=== PATIENT | male | born 2000 | race Caucasian/White ===

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

== ENCOUNTER 2020-01-27 08:52 | Emergency (ER) | payer OTHER ==
[~2020-01-27] VITALS: Ht 185.4 cm; Wt 137.4 kg
[~2020-01-27 08:52] MED LIST changes: +PREDNISONE20 MG PO; +VENTOLIN HFA18 GM INH; +ZITHROMAX250 MG PO
--- OUTSIDE RECORDS SUMMARY | 2020-01-27 08:54 | XMS ---
PreManage Notification: ENRIQUE ALARCON Security Electrical Tester Battery Events No recent Security Events currently on file CRITERIA MET - History of Sepsis CARE PROVIDERS DAREN SERVIN Physician Link Assembler 04/20/2019-Current PHONE: [phone] PALOMA HAWKINS Corporate Real Estate Specialist: Clinical Current PHONE: [phone] Kathia has no Care Guidelines for this patient. [place]iss[place] VISIT COUNT (12 MO.) [address] [place] TOTAL 8 NOTE: Visits indicate total known visits. ED/UCC VISIT TRACKING (12 MO.) 01/27/2020 08:53 [facility] [place] TYPE: Emergency COMPLAINT: - CHEST DISCOMFORT, SOB, COUGH 12/18/2019 10:10 [facility] [place] TYPE: Emergency COMPLAINT: - SOB, COUGH DIAGNOSES: - Cough - Unspecified asthma with (acute) exacerbation 11/29/2019 14:12 [facility] [place] TYPE: Emergency COMPLAINT: - LEFT SIDE CHEST PAIN DIAGNOSES: - Contact with and (suspected) exposure to other viral communicable diseases - Other chest pain - Acute upper respiratory infection, unspecified 07/17/2019 15:06 [facility] TYPE: Emergency COMPLAINT: - SORE THROAT DIAGNOSES: - Unspecified asthma, uncomplicated - Acute pharyngitis, unspecified - Acute pharyngitis, unspecified - Attention-deficit hyperactivity disorder, unspecified type - Major depressive disorder, single episode, unspecified 05/22/2019 13:41 [facility] TYPE: Emergency COMPLAINT: - FLANK/ABD PAIN, POST OP 1 MONTH DIAGNOSES: - Other longterm (current) drug therapy - Attention-deficit hyperactivity disorder, unspecified type - Major depressive disorder, single episode, unspecified - Pleural effusion, not elsewhere classified - Other chest pain - Unspecified asthma, uncomplicated 04/22/2019 12:52 [facility] TYPE: Emergency DIAGNOSES: - Shortness of Breath - Loculated pleural effusion 04/19/2019 10:59 [facility] [place] TYPE: Emergency COMPLAINT: - ACHES,BREATHING PROBLEMS 04/14/2019 18:15 [facility] [place] TYPE: Emergency COMPLAINT: - L SHOULDER/CHEST PAIN DIAGNOSES: - Chest pain, unspecified - Other chest pain INPATIENT VISIT TRACKING (12 MO.) 04/22/2019 12:52 [facility] DIAGNOSES: - Lobar pneumonia, [...] to excess calories - Body mass index [BMI]40.0-44.9, adult - Mild intermittent asthma, uncomplicated - Other specified anxiety disorders - Body mass index [BMI]40.0-44.9, adult - Mild intermittent asthma, uncomplicated - Other specified anxiety disorders - Pleural effusion in other conditions classified elsewhere - Pneumonia, unspecified organism - Morbid (severe) obesity due to excess calories - Other pulmonary collapse - Other specified pleural conditions - Other specified pleural conditions - Sepsis, unspecified organism - Pleural effusion in other conditions classified elsewhere [email or web address]
--- NOTE | 2020-01-27 12:39 | EKG ---
[facility] [address] [facility] [place] [address] Signed Normal sinus rhythm Normal ECG When compared with ECG of 19-APR-2019 11:19, Incomplete right bundle branch block is no longer present Confirmed by EZEQUIEL ROMANO MD ([id number]) on 01/27/2020 12:39:09 PM Electronically Signed By: EZEQUIEL ROMANO MD 01/27/20 1239 PATIENT NAME: DORIANENRIQUE Electrocardiogram DATE OF : [birth year] PHYSICIAN: EZEQUIEL ROMANO MD REPORT #: [id number] REPORT IS CONFIDENTIAL AND NOT TO BE RELEASED WITHOUT AUTHORIZATION
== END 2020-01-27 11:45 | disposition home or self-care (01) ==
LOC: ED 08:52
DX: J06.9 Acute upper respiratory infection, unspecified (principal); Z20.828 Contact with and (suspected) exposure to other viral communicable diseases; F90.9 Attention-deficit hyperactivity disorder, unspecified type; F32.9 Major depressive disorder, single episode, unspecified; J45.909 Unspecified asthma, uncomplicated
CPT/HCPCS: 71045; 93005; 93010; 99285-25; A9270; C9803; U0003

== ENCOUNTER 2022-10-04 13:54 | Emergency (ER) | payer SELFPAY ==
[~2022-10-04] VITALS: Ht 185.4 cm; Wt 166.9 kg
[2022-10-04] MEDS ORDERED: IBU600 MG PO (15:11)
[2022-10-04] MEDS ORDERED: CEPHALEXIN500 M1 PO (15:11)
[2022-10-04] MEDS ORDERED: BACTRIM DS TAB1 EACH PO (15:11)
[2022-10-04 15:18] VITALS: BP 145/97
== END 2022-10-04 15:19 | disposition home or self-care (01) ==
LOC: ED 13:54
DX: L03.032 Cellulitis of left toe (principal); J45.909 Unspecified asthma, uncomplicated
CPT/HCPCS: 99283

== ENCOUNTER 2022-11-29 12:17 | Emergency (ER) | payer OTHER ==
[~2022-11-29] VITALS: Ht 185.4 cm; Wt 147.5 kg
--- OUTSIDE RECORDS SUMMARY | ~2022-11-29 | XMS | Continuity of Care Document ---
Demographics + + + | Address | [address] | | | [place] [address] | + + + | Preferred Language | Unknown | + + + | Marital Status | Never | + + + | Mu-Ism Affiliation | Unknown | + + + | Race | White | + + + | Ethnic Group | Not or | + + + Author + + + | Author | [facility] | + + + | Organization | [facility] | + + + | Address | [address] | | | [place] [address] | + + + | Phone | | + + + Care Team Providers + + + + | Care Development Spec Name | Role | Phone | + + + + Unavailable | Unavailable | + + + + Allergies No information. Encounters No information. Functional Status No information. Immunizations No information. Medications No information. Problems + + + + | date | description | facility | + + + + | 2022-10-04 13:55 | UNSPECIFIED ASTHMA, | [facility] | | | UNCOMPLICATED | | + + + + | 2022-10-04 13:55 | CELLULITIS OF LEFT TOE | [facility] | + + + + | 2022-10-04 13:55 | PAIN IN LEFT TOE(S) | [facility] | + + + + Procedures No information. Results/Labs No information. Social History +--------+ + + | date | description | facility | +--------+ + + Vital Signs No information."
--- OUTSIDE RECORDS SUMMARY | ~2022-11-29 | XMS | Continuity of Care Document ---
Demographics + + + | Address | [address] | | | [place] [address] | + + + | Preferred Language | Unknown | + + + | Marital Status | Never | + + + | Presybeterian Affiliation | Unknown | + + + | Race | White | + + + | Ethnic Group | Not or | + + + Author + + + | Author | [facility] | + + + | Organization | [facility] | + + + | Address | [address] | | | [place] [address] | + + + | Phone | | + + + Care Team Providers + + + + | Care Licensed [employer] Appraiser Name | Role | Phone | + [...]
[~2022-11-29 12:17] MED LIST changes: +BACTRIM DS TAB1 EACH PO; +CEPHALEXIN500 M1 PO; +IBU600 MG PO
[2022-11-29] MEDS ORDERED: HYDROCODON-ACE1 EA11 PO (18:25)
[2022-11-29 18:56] VITALS: BP 128/70
== END 2022-11-29 18:58 | disposition home or self-care (01) ==
LOC: ED 12:17
DX: S92.412A Displaced fracture of proximal phalanx of left great toe, initial encounter for closed fracture (principal); W20.8XXA Other cause of strike by thrown, projected or falling object, initial encounter
CPT/HCPCS: 73630; 99283-25; A9270

== ENCOUNTER 2023-07-10 15:13 | Emergency (ER) | payer SELFPAY ==
[~2023-07-10] VITALS: Ht 185.4 cm; Wt 155.9 kg
[~2023-07-10 15:13] MED LIST changes: +HYDROCODON-ACE1 EA11 PO
[2023-07-10] MEDS ORDERED: ESTRADIOL1 MG PO (15:33)
[2023-07-10] MEDS ORDERED: CEPHALEXIN500 MG PO (15:33)
[2023-07-10] MEDS ORDERED: KETOROLAC TROMETHAMINE 15 MG/ML VIAL IV ONE (15:45)
[2023-07-10] MEDS ORDERED: ondansetron HCL 4 MG/2 ML VIAL IV ONE (15:45)
[2023-07-10 16:13] LABS: BASOPHILS 0.5 % (0-2); EOSINOPHILS 2.1 % (0-6); HEMATOCRIT 46.1 % (35.0-50.0); HEMOGLOBIN 16.2 g/dL (12.0-18.0); LYMPHOCYTES 27.9 % (24-44); MCH 30.3 (27-36); MCHC 35.1 g/dl (30-36); MCV 86.4 fl (81-99); MONOCYTES 3.8 % (0-12); NEUTROPHILS 65.7 % (39-80); PLATELET COUNT 260 K/uL (140-440); RBC 5.33 M/ul (4.3-5.7); RDW 12.8 (10.5-15.0)
[2023-07-10 16:27] LABS: ALBUMIN 4.2 g/dL (3.4-5.0); ALBUMIN/GLOBULIN RATIO 1.27 (1.1-2.4); ANION GAP 12.4 (7-21); BILIRUBIN, TOTAL 0.8 ng/dL (0.2-1.0); BUN/CREATININE RATIO 11.76 (6.0-28.6); CALCIUM 8.9 mg/dL (8.5-10.1); CREATININE, SERUM 0.85 mg/dL (0.70-1.30); POTASSIUM 3.4 mmol/L (3.5-5.1); PROTEIN, TOTAL 7.5 g/dL (6.4-8.2)
[2023-07-10 16:48] LABS: INFLUENZA B NAA NEGATIVE (NEGATIVE); RESPIRATORY SYNCYTIAL VIR NAA NEGATIVE (NEGATIVE)
[2023-07-10 17:18] VITALS: BP 145/70
== END 2023-07-10 17:20 | disposition home or self-care (01) ==
LOC: ED 15:13
PROVIDERS: Emergency Medicine
DX: U07.1 COVID-19 (principal); J90 Pleural effusion, not elsewhere classified; J45.909 Unspecified asthma, uncomplicated; Z79.890 Hormone replacement therapy
CPT/HCPCS: 36415; 71045; 80053; 83690; 85025; 87502; 96374; 96375; 99284-25; J1885; J2405; U0002

== ENCOUNTER 2023-07-24 09:40 | Emergency (ER) | payer SELFPAY ==
[~2023-07-24] VITALS: Ht 185.4 cm; Wt 136.5 kg
[~2023-07-24 09:40] MED LIST changes: +CEPHALEXIN500 MG PO; +ESTRADIOL1 MG PO
[2023-07-24 10:12] VITALS: BP 143/93
== END 2023-07-24 10:09 | disposition home or self-care (01) ==
LOC: ED 09:40
DX: H10.13 Acute atopic conjunctivitis, bilateral (principal); J45.909 Unspecified asthma, uncomplicated; Z79.890 Hormone replacement therapy
CPT/HCPCS: 99282

== ENCOUNTER 2024-02-02 09:38 | Emergency (ER) | payer SELFPAY ==
[~2024-02-02] VITALS: Ht 185.4 cm; Wt 165.8 kg
[~2024-02-02 09:38] MED LIST changes: +COLCHICINE0.6 M1 PO; +ESTRADIOL2 MG PO; +INDOMETHACIN50 MG PO; +SPIRONOLACTONE50 MG PO
[2024-02-02] MEDS ORDERED: ALBUTEROL/IPRATROPIUM 3 ML NEB ONE (09:48)
[2024-02-02] MEDS ORDERED: ALBUTEROL/IPRATROPIUM 3 ML NEB INH PRN (10:00)
[2024-02-02 10:13] LABS: BASOPHILS 0.6 % (0-2); EOSINOPHILS 2.6 % (0-6); HEMATOCRIT 43.5 % (35.0-50.0); HEMOGLOBIN 15.2 g/dL (12.0-18.0); LYMPHOCYTES 36.2 % (24-44); MCH 31.1 (27-36); MCHC 34.9 g/dl (30-36); MCV 89.2 fl (81-99); NEUTROPHILS 54.6 % (39-80); PLATELET COUNT 289 K/uL (140-440); RBC 4.88 M/ul (4.3-5.7); RDW 12.3 (10.5-15.0)
[2024-02-02] MEDS ORDERED: KETOROLAC TROMETHAMINE 30 MG/ML VIAL IV ONE (10:30)
[2024-02-02 10:36] LABS: ALBUMIN 4.1 g/dL (3.4-5.0); ALBUMIN/GLOBULIN RATIO 1.21 (1.1-2.4); ALKALINE PHOSPHATASE 64 U/L (46-116); ALT (SGPT) 45 U/L (14-59); ANION GAP 14.2 (7-21); AST (SGOT) 18 U/L (15-37); BILIRUBIN, TOTAL 0.4 ng/dL (0.2-1.0); BUN/CREATININE RATIO 15.29 (6.0-28.6); CALCIUM 9.3 mg/dL (8.5-10.1); CARBON DIOXIDE 27 mmol/L (21-32); CHLORIDE 103 mmol/L (98-107); CREATININE, SERUM 0.85 mg/dL (0.70-1.30); GLOMERULAR FILTRATION RATE,EST 125 mL/min (>60); POTASSIUM 4.2 mmol/L (3.5-5.1); PROTEIN, TOTAL 7.5 g/dL (6.4-8.2); UREA NITROGEN 13 mg/dL (7-18)
[2024-02-02 10:53] LABS: INFLUENZA B NAA NEGATIVE (NEGATIVE); RESPIRATORY SYNCYTIAL VIR NAA NEGATIVE (NEGATIVE)
[2024-02-02 11:33] VITALS: BP 121/74
--- NOTE | 2024-02-03 22:50 | EKG ---
[facility] [address] [facility] [place] [address] Signed Normal sinus rhythm Normal ECG When compared with ECG of 10-DEC-2022 00:26, No significant change was found Confirmed by Cuate Casey MD () on 02/03/2024 10:50:08 PM Electronically Signed By: CUATE CASEY MD 02/03/24 2250 PATIENT NAME: ENRIQUE ALARCON Electrocardiogram DATE OF : [birth year] PHYSICIAN: CUATE CASEY MD REPORT #: [id number] REPORT IS CONFIDENTIAL AND NOT TO BE RELEASED WITHOUT AUTHORIZATION
== END 2024-02-02 11:33 | disposition home or self-care (01) ==
LOC: ED 09:38
PROVIDERS: Emergency Medicine
DX: R07.89 Other chest pain (principal); J45.909 Unspecified asthma, uncomplicated; Z79.899 Other long term (current) drug therapy
CPT/HCPCS: 36415; 71045; 80053; 83735; 84484; 85025; 85379; 87502; 93005; 93010; 94640; J1885; U0002